=== PATIENT | male | born 1995 | race Caucasian/White ===

== ENCOUNTER 2025-01-21 17:29 | Emergency (ER) | payer OTHER, SELFPAY ==
--- NOTE | 2025-01-21 08:11 | RAD_ITS ---
PROCEDURE: CHEST PA AND LATERAL 01/21/2025 REASON FOR EXAM: CHEST PAIN TECHNIQUE: CHEST PA AND LATERAL COMPARISON: None. FINDINGS: Lungs/Pleura: Clear. No pneumothorax or pleural effusion. Heart/Mediastinum: Normal in size. No vascular congestion. Bones/Soft tissues: Unremarkable. RAD/Chest PA and Lateral IMPRESSION: No acute cardiopulmonary disease. Reading Location: [id number]
[2025-01-21 17:31] VITALS: BP 119/60; PULSE 65; RESP 16; TEMP 36.4; O2SAT 97; BMI 25.9
--- NOTE | 2025-01-21 17:55 | EKG12_ITS ---
Test Reason : CP Blood Pressure : */* mmHG Vent. Rate : 67 BPM Atrial Rate : 67 BPM P-R Int : 142 ms QRS Dur : 88 ms QT Int : 376 ms P-R-T Axes : 26 19 38 degrees QTcB Int : 397 ms Normal sinus rhythm with sinus arrhythmia Normal ECG Confirmed by ANDRZEJ HERNANDEZ, SACHIN ([id number]), mapping editor KARLEY SANDERSON ([id number]) on 01/22/2025 1:03:00 PM Referred By: TIGRE/VIKASH Confirmed By: SACHIN DONNELLY MD
[2025-01-21 18:07] LABS: Hematocrit 43.7 % (40-54); Hemoglobin 15.4 g/dL (13.0-16.5); Immature Granulocytes Count 0.010 X10^3/uL (0.0-0.0); Mean Corp Hgb Conc 35.2 g/dL (32-36); Mean Corpuscular Volume 88.3 fL (80-94); Mean Platelet Vol. 9.4 fl (6.2-12.0); NRBC Flagged by Analyzer 0 % (0-5); Platelet Count 293 K/mm3 (150-450); RBC Distribution Width CV 12.2 % (11.6-14.6); RBC Distribution Width SD 39.1 fl (35.1-43.9); Red Blood Count 4.95 M/mm3 (4.6-6.2); White Blood Count 6.4 K/mm3 (4.4-11.0)
--- NOTE | 2025-01-21 18:38 | EDS_ITS ---
HPI History of Present Illness Chief Complaint: Chest Pain Informant: patient Narrative Narrative: Waxing waning right-sided chest cramping since 2:30 AM yesterday 16 hours ago. 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 Denied any injury. Denies cough denies dyspnea. Denies history of similar. Denies tobacco history. Denies family history of MIs young age. Stress test years ago. No hypertension IVs hyperlipidemia. No recent travel or surgeries. No history mobilization. No PE or DVT. No allergies. States been constant waxing and waning. He took aspirin at home. Prior Similar Symptoms: No CVD Risk Factors: Negative for Hypertension, Diabetes, Hypercholesterolemia, Family History 1' </=55 or Smoking PE Risk Factors: Negative for Recent Travel/Surgery, Recent Immobilization, Prior DVT or PE or - PFSH PFSH Medical History no medical history Home Medications ?Medication ?Instructions ?Recorded ?Last Taken ?Type NK 01/21/25 Unknown History Allergy/AdvReac Type Severity Reaction Status Date / Time No Known Allergies Allergy Verified 01/21/25 17:33 Surgical History no surgical history Social History Smoking Status: Former smoker ROS ROS ED Constitutional Constitutional ED: Denies chills, fever(s) or sweats ENT ENT ED: Denies sore throat Cardiovascular Cardiovascular: Reports chest pain; Denies leg edema, palpitations or racing heartbeat Respiratory/Chest Respiratory/Chest: Denies cough, dyspnea or dyspnea on exertion Gastrointestinal Gastrointestinal: Denies abdominal pain, diarrhea, nausea or vomiting Genitourinary Genitourinary ED: Denies dysuria, hematuria or urinary frequency Musculoskeletal Musculoskeletal: Denies back pain, extremity pain or neck pain Integumentary Denies rash or wounds Neurologic Neurologic: Denies headache(s), paresthesias or weakness EXAM Physical Exam Const Vital Signs: 01/21/25 17:31 01/21/25 17:48 01/21/25 17:55 Temperature 97.5 F L Temperature Source Oral Pulse Rate 65 Respiratory Rate 16 Respiratory Effort Normal Blood Pressure 119/60 Blood Pressure Mean 79 Pulse Ox 97 Oxygen Delivery Method Room Air Room Air Positive well nourished and well developed General Appearance ED: well developed and NAD HEENT Reports moist mucous membranes normocephalic and atraumatic Eyes General Eye ED: Yes normal appearance of both eyes Neck full ROM Chest Wall Chest Narrative: Reproducible tenderness right sided chest. No crepitus. Chest: tenderness Resp normal respiratory effort and normal air movement Resp Narrative: Symmetric breath sounds. Effort and Inspection: symmetric chest movement; Negative for respiratory distress Cardio regular rate, regular rhythm and no murmurs Peripheral Pulses: pulses 2+ throughout GI normal to inspection, nondistended, normoactive bowel sounds and non-tender Palpation: Negative for guarding or rebound tenderness present Extremity normal to inspection General Extremety ED: Negative for edema or tenderness General Extremity: Negative for edema Neuro oriented x3 and no sensory deficits noted Sensorium / Orientation: awake and alert Skin no rashes or lesions noted and no wounds MDM MDM MDM Narrative Medical decision making narrative: Interventions / MDM: Differential diagnosis: Chest pain Diagnosis considered but do not suspect: Pulmonary embolism however PERC negative. My EKG interpretation: Sinus rate of 67, no ST changes. Imaging independently reviewed and interpreted by myself: 2 view chest x-ray: No acute process. External documents reviewed: N/A Test considered but not ordered:N/A ED course: Patient right-sided chest cramping. No dyspnea. PERC negative. EKG sinus rhythm no acute findings. He had cardiac concerns therefore workup initiated. Will treat with IV Toradol. Will reevaluate. 1905: Troponin negative chest x-ray negative. With persistent symptoms 16 hours neck troponin less likely cardiac in nature. Clinically feeling better with Toradol. He will continue NSAIDs. Outpatient follow-up given. All questions were answered. Re-evaluation: stable Disposition discussed with patient/family/significant other: Patient Case discussed with consulting clinician: N/A This note was generated with [employer] dictation software. It may contain incorrect words, spelling, and punctuation that were not noted in checking the note before signing. Lab Data Attestation: I reviewed the patient's lab results. Labs: Laboratory Results - last 24 hr 01/21/25 01/21/25 01/21/25 17:40 17:41 19:41 WBC 6.4 RBC 4.95 Hgb 15.4 Hct 43.7 MCV 88.3 MCH 31.1 MCHC 35.2 RDW Std Deviation 39.1 RDW Coeff of Trupti 12.2 Plt Count 293 MPV 9.4 Immature Gran % (Auto) 0.200 Neut % (Auto) 54.4 Lymph % (Auto) 27.9 [place] % (Auto) 13.6 H Eos % (Auto) 3.0 Baso % (Auto) 0.9 Absolute Neuts (auto) 3.5 Absolute Lymphs (auto) 1.79 Nucleated RBC % 0 Sodium 142 Potassium 3.9 Chloride 104 Carbon Dioxide 24.2 Anion Gap 14 BUN 15 Creatinine 1.09 Estim Creat Clear Calc 96.74 Est GFR (MDRD) Non-Af 94 BUN/Creatinine Ratio 13.9 Glucose 88 Calcium 9.8 Troponin T High Sens < 6 Troponin T Hi Sens 2 Hr Cancelled Radiography Diagnostic Testing: Clinical Impression(s) from Imaging Studies Chest X-Ray 01/21/25 08:11 IMPRESSION: No acute cardiopulmonary disease. Reading Location: [id number] Discharge Plan Triage Chief Complaint: Chest Pain ED Provider: Mynor Galindo Dx/Rx/DC Orders Clinical Impression: Atypical chest pain, Chest wall pain Instructions: ED Chest Pain, Noncardiac Prescriptions: No Action NK Primary Care Provider: Care Physician,No Primary Referrals: Florence Bower MD [Med Staff - Membership Secretary] - 1 Week Activity Restrictions/Additional Instructions: Cardiac workup negative. Continue ibuprofen up to 600 mg every 6 hours as needed. Follow-up to get established with a primary care doctor. Print Language: French Disposition Disposition: Home, Self Care
[2025-01-21 18:57] LABS: Anion Gap 14 (5-15); BUN 15 mg/dL (4-19); BUN/Creat Ratio 13.9 RATIO (10-20); Calcium,Total 9.8 mg/dL (7.6-11.0); Carbon Dioxide 24.2 mmol/L (21.0-32.0); Chloride 104 mmol/L (98-108); Estimated Creatinine Clearance 96.74 ml/min (50-250); Glucose 88 mg/dL (70-99); Potassium 3.9 mmol/L (3.3-5.1); Troponin T High Sensitivity < 6 ng/L (<=22)
[2025-01-21 19:00] VITALS: BP 113/65; PULSE 68; RESP 18; TEMP 36.6; O2SAT 100
== END 2025-01-21 19:18 | disposition home or self-care (01) ==
PROVIDERS: Emergency Provider Emergency Medicine; Visit Provider Emergency Medicine
DX: R07.89 Other chest pain (principal); Z87.891 Personal history of nicotine dependence
CPT/HCPCS: 71046; 80048; 84484; 85025; 93005; 96374; 99283; A4216